=== PATIENT | female | born 1985 | race African-American/Black ===

== ENCOUNTER 2020-12-25 00:19 | Emergency (ER) | payer BC, MEDICAID ==
[~2020-12-25 00:19] MED LIST: NO HOME MEDS
[2020-12-25] MEDS ORDERED: EAR DROPS (07:36)
[2020-12-25] MEDS ORDERED: TORADOL PO (14:09)
== END 2020-12-25 01:30 | disposition left against medical advice (07) | DRG 951 ==
LOC: ED 00:19 → LWOBS 01:30
DX: Z91.19 Patient's noncompliance with other medical treatment and regimen (principal)

== ENCOUNTER 2020-12-25 07:21 | Emergency (ER) | payer BC, MEDICAID ==
[~2020-12-25] VITALS: Ht 160 cm; Wt 117.4 kg
[2020-12-25] MEDS ORDERED: EAR DROPS (07:36)
[2020-12-25 08:25] LABS: HEMATOCRIT 36.3 % (37.0-47.0); HEMOGLOBIN 11.8 g/dl (12.0-16.0); IMMATURE GRANULOCYTES 0.3 % (0.0-5.0); MEAN CELL VOLUME 90.3 fL CALC (80.0-100.0); MEAN CORPUSCULAR HGB 29.4 pG CALC (26.0-32.0); MEAN CORPUSCULAR HGB CONC 32.5 g/dL CAL (32.0-36.0); NEUT# 8.3 thou/uL (2.00-7.15); RED BLOOD COUNT 4.02 mill/uL (4.20-5.60); RED CELL DISTRI WIDTH 13.2 % (11.5-15.5); URINE BILIRUBIN - DIPSTICK NEGATIVE (NEGATIVE); URINE BLOOD DIPSTICK SMALL (NEGATIVE); URINE CLARITY CLEAR; URINE COLOR YELLOW; URINE GLUCOSE - DIPSTICK 100 mg/dL (NEGATIVE); URINE KETONE TRACE mg/dL (NEGATIVE); URINE LEUK ESTERASE NEGATIVE (Negative); URINE NITRITE - DIPSTICK NEGATIVE (Negative); URINE PROTEIN - DIPSTICK TRACE mg/dL (NEG-TRACE); URINE SPECIFIC GRAVITY >=1.030
[2020-12-25 08:32] LABS: URINE SQUAMOUS EPITHELIAL CELL FEW EPI/hpf (0-FEW); URINE WBC 0-2 WBC/hpf (0-5)
[2020-12-25 08:37] LABS: ANION GAP 14 (6-22 (CALC)); BUN 7 mg/dL (7-17); BUN/CREATININE RATIO 10 (12-20 (CALC)); CARBON DIOXIDE 26 mmol/l (22-30); CHLORIDE 102 mmol/l (95-108); CREATININE 0.7 mg/dL (0.5-1.0); GFR > 60 ML/MIN (>=60 (CALC)); GFR FOR AFR.AMER. > 60 ML/MIN (>=60 (CALC)); POTASSIUM 3.4 mmol/l (3.5-5.1); SODIUM 139 mmol/l (137-146)
[2020-12-25 09:54] VITALS: BP 178/115
[2020-12-25] MEDS ORDERED: TORADOL PO (14:09)
== END 2020-12-25 09:54 | disposition home or self-care (01) | DRG 156 ==
LOC: ED 07:21
PROVIDERS: Emergency Medicine
DX: H60.92 Unspecified otitis externa, left ear (principal); R73.03 Prediabetes; R03.0 Elevated blood-pressure reading, without diagnosis of hypertension